=== PATIENT | male | born 1960 | race Caucasian/White ===

== ENCOUNTER 2023-01-23 23:44 | Emergency (ER) | payer SELFPAY ==
[2023-01-23 23:53] VITALS: RESP 18; TEMP 97.7; BMI 27.3
[2023-01-24 01:02] LABS: ALBUMIN 3.5 g/dl (3.4-5.0); BLOOD UREA NITROGEN 16.5 mg/dL (7-18); CALCIUM 8.8 mg/dL (8.5-10.1)
[2023-01-24 01:04] LABS: BASO % 0.9 % (0-2.0); CREATININE 0.9 mg/dL (0.55-1.3); EOS % 2.6 % (0-4.5); HEMATOCRIT 38.2 % (35.4-49); HEMOGLOBIN 13.6 GM/dL (11.7-16.9); LYMPH % 33.9 % (8-40); MCH 30.9 pg (25.7-33.7); MCHC 35.6 g/dl (32.0-35.9); MEAN PLT VOLUME 7.9 fl (7.5-11.1); MONO % 7.2 % (3.8-10.2); NEUT % 55.4 % (42.8-82.8); PLATELET COUNT 263 10^3/uL (134-434); RDW 13.1 % (11.9-15.9); WHITE BLOOD COUNT 6.8 K/mm3 (4.0-10.0)
[2023-01-24 01:06] LABS: BILIRUBIN,TOTAL 0.5 mg/dL (0.2-1); TOT PROT 7.1 g/dl (6.4-8.2)
[2023-01-24 01:25] VITALS: BP 126/83; PULSE 55
[2023-01-24] MEDS ORDERED: PSEUDOEPHEDRINE HCL 30 MG TABLET PO ONE (02:07)
[2023-01-24] MEDS ORDERED: PSEUDOEPHEDRINE HCL 60 MG TABLET ONE (02:39)
== END 2023-01-24 04:01 | disposition home or self-care (01) ==
LOC: JER 23:44
DX: R55 Syncope and collapse (principal)
CPT/HCPCS: 0241U-QW; 36415; 70450-TC; 71045-TC-FY; 80053; 84484; 85025; 93005; 93010; 99285-25